=== PATIENT | male | born 1970 | race African-American/Black ===

== ENCOUNTER 2017-01-05 13:59 | Outpatient (CLI) | payer OTHER ==
[2017-01-05 16:09] LABS: Anion Gap 15 mmol/L (10-20); BUN (Urea Nitrogen) 34 mg/dL (8.9-20.6); Calc. Creatinine Clearance 0 mL/min (70-130); Calcium 8.8 mg/dL (7.8-10.44); Carbon Dioxide 31 mmol/L (22-29); Chloride 98 mmol/L (98-107); Estimated GFR-MDRD 30; Sodium 139 mmol/L (136-145)
[2017-01-05 16:13] LABS: Glucose 233 mg/dL (70-105)
== END 2017-01-05 14:00 | disposition home or self-care (01) ==
LOC: NAV LABSP 13:59
PROVIDERS: ATTEND Nurse Practitioner Adult Health
DX: N18.9 Chronic kidney disease, unspecified (principal)
CPT/HCPCS: 80048

== ENCOUNTER 2019-04-25 13:01 | Outpatient (CLI) | payer OTHER ==
[2019-04-25 14:34] LABS: Anion Gap 18 mmol/L (10-20); BUN (Urea Nitrogen) 30 mg/dL (8.4-25.7); Calc. Creatinine Clearance 0 mL/min (70-130); Calcium 8.6 mg/dL (7.8-10.44); Carbon Dioxide 23 mmol/L (22-29); Chloride 99 mmol/L (98-107); Estimated GFR-MDRD 38; Glucose 509 mg/dL (70-105); Potassium 5.2 mmol/L (3.5-5.1); Sodium 135 mmol/L (136-145)
== END 2019-04-25 13:02 | disposition home or self-care (01) ==
LOC: NAV LABSP 13:01
PROVIDERS: ATTEND Nurse Practitioner Adult Health
DX: I10 Essential (primary) hypertension (principal)
CPT/HCPCS: 80048

== ENCOUNTER 2024-06-08 08:18 | Emergency (ER) | payer OTHER ==
[2024-06-08] MEDS ORDERED: Midazolam HCl 2 mg/2 ml Vial ONE ×2 (08:42→08:44)
[2024-06-08] MEDS ORDERED: Propofol 1,000 MG/100 ML VIAL IV ONE (08:42)
[2024-06-08] MEDS ORDERED: Rocuronium Bromide 10 MG/ML (10ML VIAL) ONE (08:43)
[2024-06-08] MEDS ORDERED: Dextrose 50% Abboject 50 ML SYRINGE ONE (09:00)
[2024-06-08] MEDS ORDERED: DOPamine 400 MG/10 ML VIAL ONE (09:00)
[2024-06-08 09:02] LABS: #Basophils 0.2 thou/uL (0.0-0.2); #Eosinphils 0.1 thou/uL (0.0-0.7); #Monocytes 0.6 thou/uL (0.11-0.59); #Neutrophils 5.6 thou/uL (1.40-6.50); %Basophils 1.6 % (0.0-1.0); %Eosinophils 0.8 % (0.0-10.0); %Monocytes 6.2 % (0.0-10.0); %Neutrophils 59.5 % (42.0-75.0); Hematocrit 38.5 % (42.0-52.0); Hemoglobin 11.5 g/dL (14.0-18.0); Mean Corpuscular HGB CONC 29.9 g/dL (32.0-36.0); Mean Corpuscular Hemoglobin 26.4 pg (27.0-31.0); Mean Corpuscular Volume 88.3 fl (78.0-98.0); Mean Platelet Volume 7.5 fL (7.4-10.4); Platelet Count 136 10x3/uL (130-400); RBC Distribution Width 12.9 % (11.5-14.5); Red Blood Cell (RBC) Count 4.36 mill/uL (4.70-6.10); White Blood Cell (WBC) Count 9.5 10x3/uL (4.8-10.8)
[2024-06-08 09:18] LABS: Troponin I Less than 0.010 ng/mL (< 0.028)
[2024-06-08 09:19] LABS: ALT (SGPT) 780 U/L (8-55); AST (SGOT) 564 U/L (5-34); Albumin 3.4 g/dL (3.5-5.0); Alkaline Phosphatase 77 U/L (40-110); Anion Gap 29 mmol/L (10-20); BUN (Urea Nitrogen) 28 mg/dL (8.4-25.7); Bilirubin, Total 0.4 mg/dL (0.2-1.2); Calc. Creatinine Clearance 0 mL/min (70-130); Carbon Dioxide 17 mmol/L (22-29); Chloride 109 mmol/L (98-107); Estimated GFR 29; Globulin 2.9 g/dL (2.4-3.5); Potassium 3.7 mmol/L (3.5-5.1); Protein, Total 6.3 g/dL (6.0-8.3)
[2024-06-08 09:20] LABS: Base Excess-Venous -15.3 mmol/L (-2.0 to 3.0); Bicarbonate (HCO3v) 19.8 mmol/L (22.0-28.0); CO2 Tension (PvCO2) 105.5 mmHg (42.0-51.0); Calcium, Ionized 1.41 mmol/L (1.15-1.33); Chloride 112 mmol/L (98-107); Glucose 46 mg/dL (70-105); Hemoglobin - Calc 13.1 g/dL (14.0-18.0); Potassium 3.5 mmol/L (3.5-5.1); Sodium 151 mmol/L (136-145); Sodium 157 mmol/L (138-145); vO2 Saturation-calc 86.3 % (60.0-85.0)
== END 2024-06-08 09:39 | disposition short-term general hospital (02) ==
LOC: NAV ERS 08:18
DX: I46.9 Cardiac arrest, cause unspecified (principal); I12.9 Hypertensive chronic kidney disease with stage 1 through stage 4 chronic kidney disease, or unspecified chronic kidney disease; E11.22 Type 2 diabetes mellitus with diabetic chronic kidney disease; N18.9 Chronic kidney disease, unspecified; E11.40 Type 2 diabetes mellitus with diabetic neuropathy, unspecified; E11.621 Type 2 diabetes mellitus with foot ulcer
CPT/HCPCS: 31500; 36415; 71045; 80053; 82330; 82803; 83605; 84484; 85025; 92950; 96374; J1265; J2250; J2704; J7999